=== PATIENT | female | born 2000 | race Caucasian/White ===

== ENCOUNTER 2021-08-03 13:27 | Emergency (ER) | payer BC ==
[~2021-08-03] VITALS: Ht 162.6 cm; Wt 60.8 kg
--- NOTE | 2021-08-03 13:38 | NUR ---
DR HELMS AT BEDSIDE FOR EVAL
--- NOTE | 2021-08-03 13:38 | NUR ---
TO ER BED 9, [id number] SEVERE ALLERGIC REACTION TO [place] C/O SOB. GIVEN 0.5 MG OF EPI IM HHN 5MG OF ALBUTEROL, AAOX3, DENIES SOB, BREATHING EVEN AND NON LABORED, CONNECTED TO MONITOR, AWAITING MD URIAS
[2021-08-03] MEDS ORDERED: FAMOTIDINE/PF INJ 20 MG/2 ML VIAL IV ONE ×2 (13:44→14:00)
[2021-08-03] MEDS ORDERED: IV NS 0.9% 1,000 ML BAG IV ONE (14:00)
[2021-08-03] MEDS ORDERED: predniSONE 20 MG TABLET ONE (14:12)
[2021-08-03] MEDS ORDERED: predniSONE 20 MG TABLET PO ONE (14:30)
[2021-08-03 16:03] LABS: BASOPHILS % (AUTO) 0.2 % (0.0-2.0); EOSINOPHILS % (AUTO) 0.2 % (0.0-6.0); HEMATOCRIT 36 % (33-45); HEMOGLOBIN 12.2 g/dL (11.5-14.8); LYMPHOCYTES % (AUTO) 6.9 % (20.0-44.0); MEAN CORPUSCULAR HGB CONC 34 g/dl (31.0-36.0); MEAN CORPUSCULAR VOLUME 88 fL (82-100); MONOCYTES # (AUTO) 0.6 K/uL (0.1-1.30); MONOCYTES % (AUTO) 4.4 % (2.0-12.0); NEUTROPHILS # (AUTO) 12.2 K/uL (1.8-8.9); NEUTROPHILS % (AUTO) 88.3 % (43.0-81.0); PLATELET COUNT (AUTO) 257 K/uL (150-450); RED BLOOD CELL COUNT(AUTO) 4.16 MIL/uL (4.0-5.2); WHITE BLOOD COUNT (AUTO) 13.8 K/uL (4.3-11.0)
[2021-08-03] MEDS ORDERED: PRED20TA PO (17:40)
[2021-08-03] MEDS ORDERED: FAMO-131 PO (17:40)
[2021-08-03] MEDS ORDERED: EPIN0.3P3 IM (17:40)
[2021-08-03 17:47] LABS: ALBUMIN 3.3 g/dL (3.4-5.0); BILIRUBIN,DIRECT 0.1 mg/dL (0.0-0.2); BILIRUBIN,TOTAL 0.4 mg/dL (0.2-1.0); CREATININE 0.9 mg/dL (0.6-1.3); POTASSIUM 3.1 mmol/L (3.5-5.1); TOTAL PROTEIN, SERUM 5.9 g/dL (6.4-8.2)
[2021-08-03 17:52] LABS: CALCIUM, SERUM 8.4 mg/dL (8.5-10.1)
[2021-08-03] MEDS ORDERED: ONDANSETRON HCL/PF 4 MG/2 ML VIAL IV ONE (18:00)
[2021-08-03] MEDS ORDERED: ONDANSETRON HCL/PF 4 MG/2 ML VIAL ONE (18:23)
--- NOTE | 2021-08-03 18:33 | NUR ---
IV removed. Catheter intact and site benign. Pressure and 4x4 applied to site. No bleeding noted.Patient discharged to home in stable condition. Written and verbal after care instructions given. Patient verbalizes understanding of instruction.
[2021-08-03 18:34] VITALS: BP 116/67
== END 2021-08-03 18:34 | disposition home or self-care (01) ==
LOC: ER 13:52
DX: O26.891 Other specified pregnancy related conditions, first trimester (principal); T78.05XA Anaphylactic reaction due to tree nuts and seeds, initial encounter; Z3A.01 Less than 8 weeks gestation of pregnancy; Z91.018 Allergy to other foods; Z91.013 Allergy to seafood; Z79.899 Other long term (current) drug therapy; X58.XXXA Exposure to other specified factors, initial encounter
CPT/HCPCS: 36415; 76805; 80048; 80076; 84702; 85025; 96361; 96374; 96375; 99285; J2405; J3490; J7030; J7512